=== PATIENT | male | born 1980 | race Caucasian/White ===

== ENCOUNTER 2017-12-15 17:08 | Emergency (ER) | payer SELFPAY ==
[2017-12-15] MEDS ORDERED: LIDOCAINE 1% W/EPI 1:100,000 MDV 50 ML VIAL ONE (18:46)
[2017-12-15] MEDS ORDERED: TETANUS & DIPHTHERIA TOX,ADULT 0.5 ML VIAL ONE (18:47)
[2017-12-15] MEDS ORDERED: HYDROCODONE/APAP 10/325 TAB ONE (18:51)
--- NOTE | 2017-12-15 19:27 | RAD REPORT ---
EXAM DESCRIPTION: RAD -Hand Left 3 View - 12/15/2017 7:20 pm CLINICAL HISTORY: Left hand pain status post injury FINDINGS: No fracture or dislocation is seen. A soft tissue laceration involves the first digit
--- NOTE | 2017-12-15 20:22 | ER ---
Nurse's Notes [facility] Name: Dillan Burns Age: 37 yrs Sex: Male : 1980 Arrival Date: 12/15/2017 Time: 17:09 Bed 20 Private MD: Diagnosis: Laceration without foreign body of left thumb without damage to nail Presentation: 12/15 17:45 Presenting complaint: Patient states: "I cut my thumb in a table saw at about 4:00" aj1 Laceration noted to left thumb, not bleeding at this time. Transition of care: patient was not received from another setting of care. Complicating Factors: There are no complicating factors for this patient. Onset of symptoms was December 15, 2017 at 16:00. Risk Assessment: Do you want to hurt yourself or someone else? Patient reports no desire to harm self or others. Initial Sepsis Screen: Does the patient meet any 2 criteria? HR > 90 bpm. No. Patient's initial sepsis screen is negative. Does the patient have a suspected source of infection? Yes: Skin breakdown/wound. Care prior to arrival: None. 17:45 Method Of Arrival: Ambulatory aj 17:45 Acuity: FARSHAD 4 aj1 Triage Assessment: 17:51 General: Appears in no apparent distress. uncomfortable, Behavior is calm, cooperative, aj1 appropriate for age. Pain: Pain currently is 10 out of 10 on a pain scale. Neuro: Level of Consciousness is awake, alert, obeys commands. Cardiovascular: Patient's skin is warm and dry. Respiratory: Airway is patent Respiratory effort is even, unlabored, Respiratory pattern is regular, symmetrical. Injury Description: Laceration sustained to palmar aspect of distal phalanx of left thumb is bleeding no active bleeding noted. Historical: - Allergies: 17:51 No Known Allergies; aj1 - Home Meds: 17:51 None [Active]; aj1 - PMHx: 17:51 None; aj1 - PSHx: 17:51 None; aj1 - Immunization history:: Flu vaccine is not up to date. - Social history:: Smoking status: Patient/guardian denies using tobacco. - Ebola Screening: : Patient denies travel to an Ebola-affected area in the 21 days before illness onset. Screenin:11 Abuse screen: Denies threats or abuse. Denies injuries from another. Nutritional ak1 screening: No deficits noted. Tuberculosis screening: No symptoms or risk factors identified. Fall Risk None identified. Assessment: 18:20 General: Appears in no apparent distress. uncomfortable, Behavior is calm, cooperative. em Pain: Complains of pain in palmar aspect of distal phalanx of left thumb Pain currently is 10 out of 10 on a pain scale. Neuro: Level of Consciousness is awake, alert, obeys commands, Oriented to person, place, time, situation. Cardiovascular: Capillary refill < 3 seconds Patient's skin is warm and dry. Respiratory: Airway is patent Respiratory effort is even, unlabored, Respiratory pattern is regular, symmetrical. GI: Abdomen is flat. : No signs and/or symptoms were reported regarding the genitourinary system. EENT: No signs and/or symptoms were reported regarding the EENT system. Derm: Skin is intact, Wound noted palmar aspect of distal phalanx of left thumb Wound is laceration with table saw. Musculoskeletal: Capillary refill < 3 seconds, Range of motion: intact in all extremities. Injury Description: Laceration sustained to palmar aspect of distal phalanx of left thumb is jagged, 0.5 to 2.5 cm long, not bleeding, was sustained 2-4 hours ago. 18:25 Reassessment: I agree with previous assessment. hb 19:11 Reassessment: Patient appears in no apparent distress at this time. No changes from ak1 previously documented assessment. pt waiting for provider to suture pt. 20:33 Reassessment: Patient appears in no apparent distress at this time. No changes from ak1 previously documented assessment. pt thumb bandaged, no bleeding noted. Vital Signs: 17:51 BP 133 / 78; Pulse 95; Resp 20; Temp 97.6; Pulse Ox 98% on R/A; Weight 92.99 kg (R); aj1 Height 6 ft. 4 in. (193.04 cm) (R); Pain 10/10; 17:51 Body Mass Index 24.95 (92.99 kg, 193.04 cm) aj1 ED Course: 17:09 Patient arrived in ED. as 17:51 Triage completed. aj1 17:51 Arm band placed on Patient placed in an exam room. aj1 17:57 Kirill Page PA is PHCP. jr8 17:57 Thor Elizabeth MD is Attending Physician. jr8 18:36 Ramses Iraheta LVN is Primary Nurse. em 19:11 Patient has correct armband on for positive identification. Bed in low position. Call ak1 light in reach. Side rails up X 1. Pulse ox on. NIBP on. 19:17 X-ray completed. Portable x-ray completed in exam room. Patient tolerated procedure ka well. 19:20 XRAY Hand LEFT 3 View In Process Unspecified. EDMS 20:27 No provider procedures requiring assistance completed. Patient did not have IV access ak1 during this emergency room visit. Administered Medications: 18:46 Drug: Tetanus-Diphtheria Toxoid Adult 0.5 ml {Patternator: [employer]. Exp: em 11/10/2019. Lot #: [id number]. } Route: IM; Site: left deltoid; 19:24 Follow up: Response: No adverse reaction ak1 18:47 Drug: [place] 10 mg-325 mg 1 tabs Route: PO; em 19:24 Follow up: Response: No adverse reaction ak1 19:25 Drug: Lidocaine (1 %) 1 vials {Note: at bedside for provider use.} Volume: 20 ml; ak1 Route: Infiltration; Outcome: 20:21 Discharge ordered by MD. jr8 20:27 Discharged to home ambulatory, with family. ak1 20:27 Condition: good 20:27 Discharge instructions given to patient, family, Instructed on discharge instructions, follow up and referral plans. no drinking with medication, no driving heavy equipment, medication usage, Demonstrated understanding of instructions, follow-up care, medications, wound care, Prescriptions given X 2. 20:33 Patient left the ED. ak1 Signatures: Dispatcher [employer] Verito Hall RN RN aj1 Ramses Iraheta, METAL FURNITURE POLISHER METAL FURNITURE POLISHER em Radha Doe Josh, PA PA jr8 Cait Ayoub RN RN ak1 Ellie Schwartz Heather, RN RN
--- NOTE | 2017-12-15 20:22 | EDPHYS ---
Physician Documentation [facility] Name: Dillan Burns Age: 37 yrs Sex: Male : 1980 Arrival Date: 12/15/2017 Time: 17:09 Bed 20 Private MD: ED Physician Thor Elizabeth HPI: 12/15 19:00 This 37 yrs old Male presents to ER via Ambulatory with complaints of jr8 Laceration - Thumb. 19:00 Onset: The symptoms/episode began/occurred acutely, today. The patient has not jr8 experienced similar symptoms in the past. The patient has not recently seen a physician. Was working on table saw and cut left thumb. Historical: - Allergies: 17:51 No Known Allergies; aj1 - Home Meds: 17:51 None [Active]; aj1 - PMHx: 17:51 None; aj1 - PSHx: 17:51 None; aj1 - Immunization history:: Flu vaccine is not up to date. - Social history:: Smoking status: Patient/guardian denies using tobacco. - Ebola Screening: : Patient denies travel to an Ebola-affected area in the 21 days before illness onset. ROS: 19:00 Eyes: Negative for injury, pain, redness, and discharge, ENT: Negative for injury, jr8 pain, and discharge, Neck: Negative for injury, pain, and swelling, Cardiovascular: Negative for chest pain, palpitations, and edema, Respiratory: Negative for shortness of breath, cough, wheezing, and pleuritic chest pain, Abdomen/GI: Negative for abdominal pain, nausea, vomiting, diarrhea, and constipation, Back: Negative for injury and pain, MS/Extremity: Negative for injury and deformity, Neuro: Negative for headache, weakness, numbness, tingling, and seizure. 19:00 Skin: Positive for laceration(s), of the palmar aspect of distal phalanx of left thumb. Exam: 19:00 Eyes: Pupils equal round and reactive to light, extra-ocular motions intact. Lids and jr8 lashes normal. Conjunctiva and sclera are non-icteric and not injected. Cornea within normal limits. Periorbital areas with no swelling, redness, or edema. ENT: Nares patent. No nasal discharge, no septal abnormalities noted. Tympanic membranes are normal and external auditory canals are clear. Oropharynx with no redness, swelling, or masses, exudates, or evidence of obstruction, uvula midline. Mucous membranes moist. Neck: Trachea midline, no thyromegaly or masses palpated, and no cervical lymphadenopathy. Supple, full range of motion without nuchal rigidity, or vertebral point tenderness. No Meningismus. Cardiovascular: Regular rate and rhythm with a normal S1 and S2. No gallops, murmurs, or rubs. Normal PMI, no JVD. No pulse deficits. Respiratory: Lungs have equal breath sounds bilaterally, clear to auscultation and percussion. No rales, rhonchi or wheezes noted. No increased work of breathing, no retractions or nasal flaring. Abdomen/GI: Soft, non-tender, with normal bowel sounds. No distension or tympany. No guarding or rebound. No evidence of tenderness throughout. Back: No spinal tenderness. No costovertebral tenderness. Full range of motion. MS/ Extremity: Pulses equal, no cyanosis. Neurovascular intact. Full, normal range of motion. Neuro: Awake and alert, GCS 15, oriented to person, place, time, and situation. Cranial nerves II-XII grossly intact. Motor strength 5/5 in all extremities. Sensory grossly intact. Cerebellar exam normal. Normal gait. 19:00 Skin: 3 cm laceration to distal thumb on palmar aspect noted. No injury to nail. Full ROM. Neurovascularly intact . Vital Signs: 17:51 BP 133 / 78; Pulse 95; Resp 20; Temp 97.6; Pulse Ox 98% on R/A; Weight 92.99 kg (R); aj1 Height 6 ft. 4 in. (193.04 cm) (R); Pain 10/10; 17:51 Body Mass Index 24.95 (92.99 kg, 193.04 cm) aj1 Laceration: 20:20 Wound Repair of 3cm ( 1.2in ) subcutaneous laceration to palmar aspect of distal jr8 phalanx of left thumb. Irregularly shaped.. Minimal bleeding noted.. Distal neuro/vascular/tendon intact. Anesthesia: Local anesthetic administered with 3 mls of 1% lidocaine. Wound prep: Extensive cleansing with betadine, Wound irrigation with saline, Wound explored extensively. Skin closed with 5 4-0 Prolene using interrupted sutures and sterile technique. Patient tolerated well. MDM: 17:57 Patient medically screened. jr8 20:20 Data reviewed: vital signs, nurses notes, radiologic studies, plain films, and as a jr8 result, I will discharge patient. Data interpreted: Pulse oximetry: on room air is 98 %. Interpretation: normal. Counseling: I had a detailed discussion with the patient and/or guardian regarding: the historical points, exam findings, and any diagnostic results supporting the discharge/admit diagnosis, radiology results, the need for outpatient follow up, a family practitioner, to return to the emergency department if symptoms worsen or persist or if there are any questions or concerns that arise at home. 12/15 18:14 Order name: XRAY Hand LEFT 3 View; Complete Time: 20:20 jr8 12/15 18:14 Order name: Prolene, Sutures; Complete Time: :25 jr8 12/15 18:14 Order name: Dressing - Wound; Complete Time: : jr8 12/15 18:14 Order name: Gloves, Sterile; Complete Time: 19:25 jr8 12/15 18:14 Order name: Setup Suture Tray; Complete Time: : jr8 Administered Medications: 18:46 Drug: Tetanus-Diphtheria Toxoid Adult 0.5 ml {Social Media Sr Strategy Manager: [employer]. Exp: em 11/10/2019. Lot #: [id number]. } Route: IM; Site: left deltoid; 19:24 Follow up: Response: No adverse reaction ak1 18:47 Drug: [place] 10 mg-325 mg 1 tabs Route: PO; em 19:24 Follow up: Response: No adverse reaction ak1 19:25 Drug: Lidocaine (1 %) 1 vials {Note: at bedside for provider use.} Volume: 20 ml; ak1 Route: Infiltration; Disposition: 12/15/17 20:21 Discharged to Home. Impression: Laceration without foreign body of left thumb without damage to nail. - Condition is Stable. - Discharge Instructions: Laceration Care, Adult. - Prescriptions for Keflex 500 mg Oral Capsule - take 1 capsule by ORAL route every 8 hours for 5 days; 15 capsule. Tylenol- Codeine #3 300-30 mg Oral Tablet - take 2 tablets by ORAL route every 6 hours As needed; 12 tablet. - Medication Reconciliation Form, Thank You Letter, Antibiotic Education, Prescription Opioid Use form. - Follow up: Private Physician; When: 7 - 10 days; Reason: Wound Recheck, Recheck today's complaints, Continuance of care, Staple/Suture removal, Re-evaluation by your physician. - Problem is new. - Symptoms have improved. Addendum: 12/18/2017 07:45 Co-signature as Attending Physician, Thor Elizabeth MD. r n Signatures: Dispatcher [employer] EDVerito Zheng RN RN aj1 Esequiel, Ramses, TURFGRASS MANAGEMENT PROFESSOR TURFGRASS MANAGEMENT PROFESSOR em Thor Elizabeth MD MD rn Roszak, Josh, PA PA jr8 Cait Ayoub RN RN ak1 Corrections: (The following items were deleted from the chart) 12/15 20:33 20:21 12/15/2017 20:21 Discharged to Home. Impression: Laceration without foreign body ak1 of left thumb without damage to nail. Condition is Stable. Forms are Medication Reconciliation Form, Thank You Letter, Antibiotic Education, Prescription Opioid Use. Follow up: Private Physician; When: 7 - 10 days; Reason: Wound Recheck, Recheck today's complaints, Continuance of care, Staple/Suture removal, Re-evaluation by your physician. Problem is new. Symptoms have improved. jr8
== END 2017-12-15 20:33 | disposition home or self-care (01) ==
LOC: ER 17:08
PROC: 0JQK0ZZ Repair Left Hand Subcutaneous Tissue and Fascia, Open Approach (ICD-10-PCS; principal; 2017-12-15)
DX: S61.012A Laceration without foreign body of left thumb without damage to nail, initial encounter (principal); W29.8XXA Contact with other powered hand tools and household machinery, initial encounter; Z23 Encounter for immunization
CPT/HCPCS: 90714; 99284